=== PATIENT | female | born 1940 | race Caucasian/White ===

== ENCOUNTER 2018-09-16 18:58 | Emergency (ER) | payer OTHER ==
[2018-09-16 19:18] VITALS: BP 145/76
[2018-09-16] MEDS ORDERED: Cephalexin CAP* 500 MG PO ONE (19:34)
[2018-09-16] MEDS ORDERED: predniSONE TAB* 20 MG PO ONE ×2 (19:35→19:36)
--- NOTE | 2018-09-16 19:42 | UC ---
HPI Wound/Suture Re-check - HPI Summary HPI Summary: Patient had a lumpectomy in [place] on 08/22 on the right breast the breast is red, the wound is inflammed, excoriation from the dressing is noted, Thinks she had a reaction to the wound glue. the breast is hot and warm to touch. afebrile - History Of Current Complaint Chief Complaint: UCSkin Stated Complaint: SUTURE SITE CONCERN Time Seen by Provider: 09/16/18 19:13 Hx Obtained From: Patient Onset/Duration: Gradual Onset, Lasting Days Severity: Mild Pain Intensity: 0 - Allergies/Home Medications Allergies/Adverse Reactions: Allergies Allergy/AdvReac Type Severity Reaction Status Date / Time Penicillins Allergy Unknown Verified 09/16/18 19:20 Reaction Details Home Medications: Home Medications Sulfamethox/Trimethoprim DS* [Bactrim DS 800/160 TAB*] 1 tab PO BID 09/16/18 [ History Confirmed 09/16/18] PMH/Surg Hx/FS Hx/Imm Hx Previously Healthy: Yes Cancer History: Breast Cancer - Surgical History Surgical History: Yes Surgery Procedure, Year, and Place: RIGHT BREAST LUMPECTOMY AND LYMPH NODE DISSECTION. - Social History Alcohol Use: None Substance Use Type: None Smoking Status (MU): Never Smoked Tobacco Review of Systems All Other Systems Reviewed And Are Negative: Yes Constitutional: Positive: Negative Skin: Positive: Other - erythema, wound on breast Eyes: Positive: Negative ENT: Positive: Negative Respiratory: Positive: Negative Cardiovascular: Positive: Negative Gastrointestinal: Positive: Negative Genitourinary: Positive: Negative Motor: Positive: Negative Neurovascular: Positive: Negative Musculoskeletal: Positive: Negative Neurological: Positive: Negative Psychological: Positive: Negative Is Patient Immunocompromised?: No Physical Exam Triage Information Reviewed: Yes Appearance: Well-Appearing, Well-Nourished, Pain Distress Vital Signs: Initial Vital Signs Temp 99.1 F 09/16/18 19:12 Pulse 93 09/16/18 19:12 Resp 16 09/16/18 19:12 BP 145/76 09/16/18 19:12 Pulse Ox 95 09/16/18 19:12 Vital Signs Reviewed: Yes Eye Exam: Normal ENT Exam: Normal Dental Exam: Normal Neck exam: Normal Respiratory Exam: Normal Respiratory: Positive: Chest non-tender, Lungs clear, Normal breath sounds Cardiovascular Exam: Normal Cardiovascular: Positive: RRR, No Murmur, Pulses Normal Abdominal Exam: Normal Abdomen Description: Positive: Nontender, No Organomegaly, Soft Bowel Sounds: Positive: Present Musculoskeletal Exam: Normal Neurological Exam: Normal Psychological Exam: Normal Skin: Positive: Significant Lesion(s) - inflammed wound to right breast, erythema of the entire right breast, red spotted drug rash on entire body Course/Dx - Course Course Of Treatment: hx obtained, exam performed ,meds reviewed, wound cleasned with Normal saline and loose excoriated skin removed, placed a vaseline guaze and telfa over the wound. placed on ABX and prednisone for cellulitis and allergic reaction. recommend follow up with surgeon tomorrow morning - Differential Dx - Laceration/Wound Differential Diagnoses: Cellulitis, Dehiscence, Healing Wound - Diagnosis Provider Diagnosis: Cellulitis of right breast, Non-healing surgical wound, Drug-induced skin rash Discharge - Sign-Out/Discharge Documenting (check all that apply): Patient Departure All imaging exams completed and their final reports reviewed: Yes - Discharge Plan Condition: Stable Disposition: HOME Patient Education Materials: Acute Rash (ED), Surgical Site Infections (ED) Referrals: No Primary Care Phys,NOPCP [Primary Care Provider] - Additional Instructions: 1. take the medication that has been dispensed over the next day 2. I have prescribed the rest of the medication for the infection 3. Continue to use the Vaseline gauze and the telfa change daily and as needed. 4. Follow up with the surgeon as soon as possible - Billing Disposition and Condition Condition: STABLE Disposition: Home
== END 2018-09-16 19:57 | disposition home or self-care (01) ==
LOC: UCCORT 18:58
DX: N61.0 Mastitis without abscess (principal); T81.89XA Other complications of procedures, not elsewhere classified, initial encounter; L27.0 Generalized skin eruption due to drugs and medicaments taken internally; Z88.0 Allergy status to penicillin
CPT/HCPCS: 99203; A9270-GY; G0463; J7512